=== PATIENT | female | born 1965 | race Hispanic/Latino ===

== ENCOUNTER → 2018-05-05 | Outpatient (REF) | payer OTHER ==
[~2018-05-05] MED LIST: ALENDRONATE35 MG PO; BACLOFEN10 MG PO; CARAFATE1 GM/10 M1 PO; CYMBALTA30 MG PO; ENBREL50 MG/M1 SC; FLUOXETINE40 MG PO; FOLIC ACID1 MG PO; GAVISCON EXTRA; HEARTBURN RELIE20 MG; IMIPRAMINE HCL10 MG PO; KEFLEX500 M1 PO; LINZESS145 MCG PO; MIRALAX3350 NF PO; NEURONTIN300 MG PO; NIFEDIPINE30 MG PO; ONDANSETRON HCL4 MG PO; PAROXETINE30 MG PO; PRILOSEC40 MG PO; RHEUMATREX2.5 MG PO; STOOL SOFTENER100 M1 PO; TIZANIDINE2 MG PO; TRAZODONE100 MG PO; VITAMIN D50000 UN1 PO; XANAX0.25 MG PO; XGEVA SC; ZOMIG; ZYLOPRIM300 MG PO; [UNRECOGNIZED DRUG - OTHER]
[2018-05-05 11:15] LABS: BARBITURATES NEGATIVE (NEGATIVE); COCAINE NEGATIVE (NEGATIVE); METHADONE NEGATIVE (NEGATIVE); TETRAHYDROCANNABIONOL NEGATIVE (NEGATIVE); TRICYLIC ANTIDEPRESSANTS POSITIVE (NEGATIVE)
[2018-05-05 11:16] LABS: OXCYCODONE NEGATIVE (NEGATIVE)
[2018-05-05 11:27] VITALS: BP 110/71
== END | disposition home or self-care (01) | DRG 950 ==
LOC: PAIN/MGT 10:56
PROVIDERS: ATTEND Anesthesiology Pain Medicine
DX: Z51.81 Encounter for therapeutic drug level monitoring (principal); Z79.891 Long term (current) use of opiate analgesic

== ENCOUNTER → 2018-06-10 | Day surgery (SDC) | payer OTHER ==
[~2018-06-10] VITALS: Ht 149.9 cm; Wt 45.4 kg
[2018-06-10 09:18] VITALS: BP 99/74
== END | disposition home or self-care (01) ==
LOC: ORM 06:55
PROVIDERS: ATTEND Anesthesiology Pain Medicine
DX: M54.5 Low back pain (principal); M12.9 Arthropathy, unspecified

== ENCOUNTER 2018-07-15 07:00 | Day surgery (SDC) | payer OTHER ==
[2018-07-15 08:47] VITALS: BP 87/54
== END 2018-07-15 10:55 | disposition home or self-care (01) ==
LOC: ORM 07:00
PROVIDERS: ATTEND Anesthesiology Pain Medicine
DX: M54.5 Low back pain (principal); M12.9 Arthropathy, unspecified

== ENCOUNTER 2022-01-23 07:31 | Day surgery (SDC) | payer OTHER ==
[2022-01-23] MEDS ORDERED: AMBIEN5 MG PO (07:48)
[2022-01-23] MEDS ORDERED: FLOVENT HFA44 MC1 IN (07:49)
[2022-01-23] MEDS ORDERED: PROAIR HFA IN (07:50)
[2022-01-23] MEDS ORDERED: PROTONIX20 M1 PO (07:51)
[2022-01-23 10:12] VITALS: BP 107/68
== END 2022-01-23 10:32 | disposition home or self-care (01) ==
LOC: ORM 07:31
PROVIDERS: ATTEND Physical Medicine & Rehabilitation
DX: M79.18 Myalgia, other site (principal); Z01.818 Encounter for other preprocedural examination; Z11.59 Encounter for screening for other viral diseases